=== PATIENT | female | born 1995 | race American Indian/Alaskan Native ===

== ENCOUNTER 2021-03-19 19:35 | Emergency (ER) | payer SELFPAY ==
--- NOTE | 2021-03-19 20:42 | Emergency Department Report ---
ED Female HPI - General Chief complaint: Abdominal Pain Stated complaint: PELVIC PAIN Time Seen by Provider: 03/19/21 20:38 Source: patient Mode of arrival: Ambulatory Limitations: No Limitations - History of Present Illness Initial comments: Is a 25-year-old female who presents for vaginal pain and bleeding x1 week. Menstrual cycle 1 month ago. Patient is G2, P1, A1. Patient describes pain as cramping aching exacerbated by movement and palpation. Patient has appointment with ACUTE COORDINATOR however it increased to 5/10 today. There is no nausea or vomiting. No fever or chills. No dizziness lightheadedness ,or syncope. Has no history of fibroid or ovarian cyst. Patient denies concern for STI. there is no abnormal vaginal discharge, she denies dysuria, frequency or urgency , pt is tolerating po intake without n/v MD Complaint: vaginal bleeding, pelvic pain - Related Data Previous Rx's Medication Instructions Recorded Last Taken Type Ibuprofen [Motrin 800 MG tab] 800 mg PO Q8HR PRN #30 tablet 03/20/21 Unknown Rx Allergies Allergy/AdvReac Type Severity Reaction Status Date / Time No Known Allergies Allergy Unverified 03/19/21 23:20 ED Review of Systems ROS: Stated complaint: PELVIC PAIN Other details as noted in HPI Constitutional: denies: chills, fever Eyes: denies: eye pain, eye discharge, vision change ENT: denies: ear pain, throat pain Respiratory: denies: cough, shortness of breath, wheezing Cardiovascular: denies: chest pain, palpitations Endocrine: no symptoms reported Gastrointestinal: abdominal pain. denies: nausea, vomiting, diarrhea Genitourinary: abnormal menses. denies: urgency, dysuria, frequency, hematuria, discharge Musculoskeletal: back pain Skin: denies: rash, lesions Neurological: denies: headache, weakness, paresthesias Psychiatric: denies: anxiety, depression Hematological/Lymphatic: denies: easy bleeding, easy bruising ED Past Medical Hx - Past Medical History Previous Medical History?: Yes Hx Psychiatric Treatment: Yes (anxiety) - Surgical History Past Surgical History?: No - Medications Home Medications: Home Medications Medication Instructions Recorded Confirmed Last Taken Type Ibuprofen [Motrin 800 MG tab] 800 mg PO Q8HR PRN #30 tablet 03/20/21 Unknown Rx ED Physical Exam - General Limitations: No Limitations General appearance: alert, in no apparent distress - Head Head exam: Present: atraumatic, normocephalic - Eye Eye exam: Present: normal appearance, EOMI Pupils: Present: normal accommodation - ENT ENT exam: Present: mucous membranes moist - Neck Neck exam: Present: normal inspection, full ROM. Absent: tenderness - Respiratory Respiratory exam: Present: normal lung sounds bilaterally. Absent: respiratory distress, wheezes, chest wall tenderness - Cardiovascular Cardiovascular Exam: Present: regular rate, normal rhythm, normal heart sounds. Absent: systolic murmur, diastolic murmur, rubs, gallop - GI/Abdominal GI/Abdominal exam: Present: soft, normal bowel sounds. Absent: distended, tenderness, guarding, rebound, rigid, bruit, hernia - Rectal Rectal exam: Present: deferred - External exam: Present: other (deferred by patient ) - Extremities Exam Extremities exam: Present: normal inspection, full ROM - Back Exam Back exam: Present: normal inspection, full ROM. Absent: CVA tenderness (R), CVA tenderness (L) - Neurological Exam Neurological exam: Present: alert, oriented X3, CN II-XII intact, normal gait - Psychiatric Psychiatric exam: Present: normal affect - Skin Skin exam: Present: warm, dry, intact, normal color. Absent: rash ED Course Vital Signs 03/19/21 19:55 Temperature 98.3 F Pulse Rate 79 Respiratory 16 Rate Blood Pressure 96/49 O2 Sat by Pulse 100 Oximetry ED Medical Decision Making - Lab Data Result diagrams: 03/19/21 21:04 Labs 03/19/21 03/19/21 21:04 21:04 WBC 6.2 RBC 4.16 Hgb 11.3 Hct 35.8 MCV 86 MCH 27 L MCHC 32 RDW 15.1 Plt Count 313 Lymph % (Auto) 17.5 [place] % (Auto) 4.9 Eos % (Auto) 0.2 Baso % (Auto) 0.3 Lymph # (Auto) 1.1 L [place] # (Auto) 0.3 Eos # (Auto) 0.0 Baso # (Auto) 0.0 Seg Neutrophils % 77.1 H Seg Neutrophils # 4.8 HCG, Quant < 2 - Radiology Data Radiology results: report reviewed, image reviewed ULTRASOUND PELVIS, COMPLETE INDICATION: Pelvic pain COMPARISON: No relevant prior imaging study available. TECHNIQUE: Transabdominal imaging was performed. FINDINGS: Uterus: No significant abnormality. Endometrial echo complex measures 9 mm, within normal limits. Right ovary: No significant abnormality. Flow is seen to the right ovary. Left ovary: Not visualized. Additional findings: There is no free fluid in the pelvis. IMPRESSION: Unremarkable pelvic ultrasound. Nonvisualization of the left ovary. Signer Name: Oliverio Oliver MD Signed: 03/20/2021 12:31 AM Workstation Name: [id number] Transcribed By: MAU Dictated By: Oliverio Oliver MD Electronically Authenticated By: Oliverio Oliver MD Signed Date/Time: 03/20/21 0031 - Medical Decision Making Labs are normal, ultrasound pelvis unremarkable, plan DC to home, with prescriptions. Follow-up with primary care doctor in 2 to 3 days. Return to emergency department should symptoms worsen. Patient verbalized agreement and understanding with discharge plan. Patient DC'd home in stable condition at this time. Critical care attestation.: If time is entered above; I have spent that time in minutes in the direct care of this critically ill patient, excluding procedure time. ED Disposition Clinical Impression: Dysmenorrhea Abdominal pain Qualifiers: Abdominal location: generalized Qualified Code(s): R10.84 - Generalized abdominal pain Disposition: 01 HOME / SELF CARE / HOMELESS Is pt being admited?: No Does the pt Need Aspirin: No Condition: Stable Instructions: Abdominal Pain (ED), Abdominal Pain, Adult, Dysmenorrhea Additional Instructions: Take medications as prescribed, follow-up with your doctor in 2 to 3 days. Return to emergency department should symptoms worsen. Prescriptions: Ibuprofen [Motrin 800 MG tab] 800 mg PO Q8HR PRN #30 tablet PRN Reason: pain Referrals: BLANCA COPELAND MD [Staff Physician] - 3-5 Days Forms: Work/School Release Form(ED) Time of Disposition: 01:03
[2021-03-19 21:26] LABS: Basophils % (Auto) 0.3 % (0.0-1.8); Eosinophils % (Auto) 0.2 % (0.0-4.3); Hematocrit 35.8 % (30.3-42.9); Hemoglobin 11.3 gm/dl (10.1-14.3); Lymphocytes # (Auto) 1.1 K/mm3 (1.2-5.4); Lymphocytes % (Auto) 17.5 % (13.4-35.0); Mean Corpuscular HGB Conc 32 % (30-34); Mean Corpuscular Volume 86 fl (79-97); Monocytes # (Auto) 0.3 K/mm3 (0.0-0.8); Monocytes % (Auto) 4.9 % (0.0-7.3); Platelet Count 313 K/mm3 (140-440); Red Blood Count 4.16 M/mm3 (3.65-5.03); Red Cell Distribution Width 15.1 % (13.2-15.2)
--- NOTE | 2021-03-20 00:36 | Ultrasound Report ---
. ULTRASOUND PELVIS, COMPLETE INDICATION: Pelvic pain COMPARISON: No relevant prior imaging study available. TECHNIQUE: Transabdominal imaging was performed. FINDINGS: Uterus: No significant abnormality. Endometrial echo complex measures 9 mm, within normal limits. Right ovary: No significant abnormality. Flow is seen to the right ovary. Left ovary: Not visualized. Additional findings: There is no free fluid in the pelvis. IMPRESSION: Unremarkable pelvic ultrasound. Nonvisualization of the left ovary. Signer Name: Oliverio Oliver MD Signed: 03/20/2021 12:31 AM Workstation Name: [id number]
[2021-03-20 01:18] VITALS: BP 93/60
== END 2021-03-20 01:23 | disposition home or self-care (01) ==
LOC: ED 19:35
DX: N94.6 Dysmenorrhea, unspecified (principal)
CPT/HCPCS: 36415; 76856; 84702; 85025; 99284

== ENCOUNTER 2021-07-12 21:43 | Emergency (ER) | payer MEDICAID ==
[2021-07-12] MEDS ORDERED: FAMOTIDINE 20 MG/2 ML INJ IV ONE (22:25)
[2021-07-12] MEDS ORDERED: METOCLOPRAMIDE 10 MG/2 ML INJ IV ONE (22:25)
[2021-07-12] MEDS ORDERED: diphenhydrAMINE 50 MG/ML VIAL IV ONE (22:25)
[2021-07-12 23:14] LABS: Hemoglobin 11.3 gm/dl (10.1-14.3); Mean Corpuscular HGB Conc 32 % (30-34); Mean Corpuscular Volume 87 fl (79-97); Platelet Count 262 K/mm3 (140-440); Red Blood Count 4.03 M/mm3 (3.65-5.03); Red Cell Distribution Width 14.4 % (13.2-15.2)
[2021-07-12 23:34] LABS: Alanine Aminotransferase 8 units/L (7-56); Blood Urea Nitrogen 8 mg/dL (7-17); Calcium 8.8 mg/dL (8.4-10.2); Hemolysis Index 6
[2021-07-12 23:42] LABS: BUN/Creatinine Ratio 20
[2021-07-12] MEDS ORDERED: POTASSIUM CHLORIDE ER 20 MEQ TAB PO ONE (23:56)
[2021-07-13 00:24] LABS: Bilirubin,Urine NEG (Negative); Blood,Urine NEG (Negative); Color,Urine Yellow (Yellow); Protein,Urine <15 mg/dL mg/dL (Negative); RBC,Urine < 1.0 /HPF (0.0-6.0); Urobilinogen,Urine < 2.0 mg/dL (<2.0)
[2021-07-13 00:32] LABS: Band Neutrophils # (Manual) 0.1 K/mm3; Total Cells Counted 100
[2021-07-13 00:33] LABS: Anisocytosis 1+; Platelet Estimate Consistent w Auto
--- NOTE | 2021-07-13 00:41 | Emergency Department Report ---
ED N/V/D HPI - General Chief complaint: Nausea/Vomiting/Diarrhea Stated complaint: /CANNOT HOLD ANYTHING DOWN Source: patient Mode of arrival: Ambulatory Limitations: No Limitations - History of Present Illness Initial comments: Patient is a A0 25-year-old -Malaysian female who is approximately 10 weeks gestation and who has past medical history of anxiety presents to the ED with complaint of acute onset persistent intractable nausea and vomiting for the last 1 week, worse in the last 3 days. Patient states that she has not been able to keep anything down including fluids for the last 3 days. Patient states that nausea and vomiting is constant and persistent. Patient denies abdominal pain, vaginal bleeding, diarrhea, fever, chills, cough, chest pain, shortness of breath, sore throat, headache, dysuria, urinary frequency and urgency or back pain. MD complaint: nausea, vomiting, other (10 weeks gestation) -: Sudden, week(s) (1) Description of Vomiting: food contents, watery Associated Abdominal Pain: No Location: diffuse Radiation: none Severity: moderate Pain Scale: 5 Quality: dull Consistency: intermittent Improves with: none Worsens with: eating, vomiting Context: other (10 weeks gestation) Associated Symptoms: denies other symptoms, nausea/vomiting. denies: myalgias, chest pain, cough, diaphoresis, fever/chills, headaches, loss of appetite, malaise, rash, shortness of breath, syncope, weakness - Related Data Previous Rx's Medication Instructions Recorded Last Taken Type Ibuprofen [Motrin 800 MG tab] 800 mg PO Q8HR PRN #30 tablet 03/20/21 Unknown Rx Famotidine [Pepcid] 20 mg PO BID #30 tablet 07/13/21 Unknown Rx Metoclopramide [Reglan] 10 mg PO Q8H PRN #30 tab 07/13/21 Unknown Rx Potassium Chloride [Klor-Con M20] 20 meq PO Q12H #12 tab 07/13/21 Unknown Rx Vit No.129/Iron/Folic 1 each PO DAILY #60 tab 07/13/21 Unknown Rx [ One Daily Tablet] Promethazine HCl [Phenergan SUPPOS] 25 mg RC Q12H PRN #15 cap 07/13/21 Unknown Rx Allergies Allergy/AdvReac Type Severity Reaction Status Date / Time shellfish derived Allergy Swelling Verified 07/12/21 22:09 ED Review of Systems ROS: Stated complaint: /CANNOT HOLD ANYTHING DOWN Other details as noted in HPI Constitutional: denies: chills, fever Eyes: denies: eye pain, eye discharge, vision change ENT: denies: ear pain, throat pain, dental pain, hearing loss, congestion Respiratory: denies: cough, shortness of breath, wheezing Cardiovascular: denies: chest pain, palpitations Endocrine: no symptoms reported Gastrointestinal: nausea, vomiting. denies: abdominal pain, diarrhea Genitourinary: denies: urgency, dysuria, discharge Musculoskeletal: denies: back pain, joint swelling, arthralgia Skin: denies: rash, lesions Neurological: denies: headache, weakness, paresthesias Psychiatric: denies: anxiety, depression Hematological/Lymphatic: denies: easy bleeding, easy bruising ED Past Medical Hx - Past Medical History Previous Medical History?: Yes Hx Psychiatric Treatment: Yes (anxiety) - Surgical History Past Surgical History?: No - Medications Home Medications: Home Medications Medication Instructions Recorded Confirmed Last Taken Type Ibuprofen [Motrin 800 MG tab] 800 mg PO Q8HR PRN #30 tablet 03/20/21 Unknown Rx Famotidine [Pepcid] 20 mg PO BID #30 tablet 07/13/21 Unknown Rx Metoclopramide [Reglan] 10 mg PO Q8H PRN #30 tab 07/13/21 Unknown Rx Potassium Chloride [Klor-Con M20] 20 meq PO Q12H #12 tab 07/13/21 Unknown Rx Vit No.129/Iron/Folic 1 each PO DAILY #60 tab 07/13/21 Unknown Rx [ One Daily Tablet] Promethazine HCl [Phenergan SUPPOS] 25 mg RC Q12H PRN #15 cap 07/13/21 Unknown Rx ED Physical Exam - General Limitations: No Limitations General appearance: alert, in no apparent distress - Head Head exam: Present: atraumatic, normocephalic, normal inspection - Eye Eye exam: Present: normal appearance, PERRL, EOMI Pupils: Present: normal accommodation - ENT ENT exam: Present: normal exam, normal orophraynx, mucous membranes moist, TM's normal bilaterally, normal external ear exam - Neck Neck exam: Present: normal inspection, full ROM. Absent: tenderness - Respiratory Respiratory exam: Present: normal lung sounds bilaterally. Absent: respiratory distress, wheezes, rales, rhonchi, chest wall tenderness, accessory muscle use, decreased breath sounds - Cardiovascular Cardiovascular Exam: Present: regular rate, normal rhythm, normal heart sounds. Absent: bradycardia, tachycardia, systolic murmur, diastolic murmur, rubs, gallop - GI/Abdominal GI/Abdominal exam: Present: soft, normal bowel sounds. Absent: tenderness, guarding, rebound, hyperactive bowel sounds, hypoactive bowel sounds, or ganomegaly, mass - Extremities Exam Extremities exam: Present: normal inspection, full ROM, normal capillary refill - Back Exam Back exam: Present: normal inspection, full ROM. Absent: tenderness, CVA tenderness (R), CVA tenderness (L), muscle spasm, paraspinal tenderness, vertebral tenderness - Neurological Exam Neurological exam: Present: alert, oriented X3, CN II-XII intact, normal gait, reflexes normal - Psychiatric Psychiatric exam: Present: normal affect, normal mood - Skin Skin exam: Present: warm, dry, intact, normal color. Absent: rash ED Course Vital Signs 07/12/21 22:09 Temperature 98.8 F Pulse Rate 78 Respiratory 16 Rate Blood Pressure 113/69 [Right] O2 Sat by Pulse 99 Oximetry ED Medical Decision Making - Lab Data Result diagrams: 07/12/21 22:48 07/12/21 22:48 - Medical Decision Making This is a A0 25-year-old -Malaysian female who is approximately 10 weeks gestation and who has past medical history of anxiety presents to the ED with complaint of acute onset persistent intractable nausea and vomiting for the last 1 week, worse in the last 3 days. Patient states that she has not been able to keep anything down including fluids for the last 3 days. Patient states that nausea and vomiting is constant and persistent. In the ED, patient is alert and oriented x3 and is not in any distress. Patient is hemodynamically stable. Lab test results were reviewed and are all nonactionable except for ac pauma hypokalemia of 3.3 mmol/L and mild acute hyponatremia of 135 mmol/L, and hCG quant is [id number]. Patient was treated in the ED with antacids, antiemetics and also received normal saline 1 L IV bolus x1. Patient also received potassium chloride 40 mEq p.o. x1. On reevaluation, patient passed oral fluid challenge in the ED. Patient was discharged home on medications including antiemetics and vitamin prescriptions and was advised to follow-up with [facility] RECAPPING MACHINE OPERATOR physician in 5 to 7 days for reevaluation or return to the ED immediately if symptoms get worse. - Differential Diagnosis Dehydration; hyperemesis gravidarum; UTI; GERD; hypokalemia Critical care attestation.: If time is entered above; I have spent that time in minutes in the direct care of this critically ill patient, excluding procedure time. ED Disposition Clinical Impression: Hyperemesis gravidarum, Nausea and vomiting during prior to 22 weeks gestation, Acute hypokalemia Disposition: HOME / SELF CARE / HOMELESS Is pt being admited?: No Does the pt Need Aspirin: No Condition: Stable Instructions: Hyperemesis Gravidarum, Hypokalemia, Nausea and Vomiting, Adult, [id number], Morning Sickness, [id number] Additional Instructions: All lab test results were reviewed and are all nonactionable except for mild hyponatremia and hypokalemia. Therefore maintain a clear liquid diet for 12 to 24 hours, drink plenty of fluids and take medication as advised. Follow-up with your TIRE RECAPPING MACHINE OPERATOR physician in 5 to 7 days for reevaluation or return to the ED immediately if symptoms get worse. Prescriptions: Potassium Chloride [Klor-Con M20] 20 meq PO Q12H #12 tab Famotidine [Pepcid] 20 mg PO BID #30 tablet Promethazine HCl [Phenergan SUPPOS] 25 mg RC Q12H PRN #15 cap PRN Reason: Nausea And Vomiting Vit No.129/Iron/Folic [ One Daily Tablet] 1 each PO DAILY #60 tab Metoclopramide [Reglan] 10 mg PO Q8H PRN #30 tab PRN Reason: Nausea And Vomiting Referrals: UMER DAS MD [Staff Physician] - 3-5 Days Time of Disposition: 00:45 Print Language: FINNISH
[2021-07-13 00:43] LABS: Bacteria,Urine 2+ /HPF (Negative); Mucus,Urine FEW /HPF
[2021-07-13 01:29] VITALS: BP 135/75
== END 2021-07-13 01:29 | disposition home or self-care (01) ==
LOC: ED 21:43
DX: O21.1 Hyperemesis gravidarum with metabolic disturbance (principal); O21.9 Vomiting of pregnancy, unspecified; O99.281 Endocrine, nutritional and metabolic diseases complicating pregnancy, first trimester; Z91.013 Allergy to seafood; Z3A.10 10 weeks gestation of pregnancy
CPT/HCPCS: 36415; 80053; 81001; 83690; 84702; 85007; 85025; 96374; 96375; 99283; J1200; J2765; J3490

== ENCOUNTER 2021-10-06 21:51 | Emergency (ER) | payer MEDICAID ==
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
[2021-10-06 23:57] LABS: Basophils % (Auto) 0.2 % (0.0-1.8); Eosinophils % (Auto) 0.1 % (0.0-4.3); Lymphocytes # (Auto) 2.4 K/mm3 (1.2-5.4); Lymphocytes % (Auto) 21.5 % (13.4-35.0); Mean Corpuscular HGB Conc 32 % (30-34); Mean Corpuscular Volume 90 fl (79-97); Monocytes # (Auto) 0.7 K/mm3 (0.0-0.8); Monocytes % (Auto) 6.4 % (0.0-7.3); Platelet Count 333 K/mm3 (140-440); Red Blood Count 3.79 M/mm3 (3.65-5.03); Red Cell Distribution Width 14.4 % (13.2-15.2)
[2021-10-07 00:09] LABS: INR 0.95 (0.87-1.13)
[2021-10-07 00:10] LABS: Partial Thromboplastin Time 29.5 Sec. (24.2-36.6)
[2021-10-07 00:17] LABS: Alanine Aminotransferase 7 units/L (7-56); Albumin 4.2 g/dL (3.9-5); Blood Urea Nitrogen 8 mg/dL (7-17); Calcium 9.6 mg/dL (8.4-10.2); Hemolysis Index 2
[2021-10-07 00:18] LABS: BUN/Creatinine Ratio 16
[2021-10-07 02:29] LABS: Iron 123 ug/dL (37-170); Total Iron Binding Capacity 425 mcg/dL (250-450)
[2021-10-07 08:40] LABS: Bilirubin,Urine NEG (Negative); Blood,Urine NEG (Negative); Color,Urine Amber (Yellow); Mucus,Urine 3+ /HPF; Protein,Urine <15 mg/dL mg/dL (Negative)
[2021-10-07 08:45] LABS: Amphetamine Screen,Urine Negative; Benzodiazepines Screen,Urine Negative; Cannabinoid Screen,Urine Negative; Cocaine Screen,Urine Negative; Methadone Screen,Urine Negative; Opiate Screen,Urine Negative
[2021-10-07] MEDS ORDERED: POTASSIUM CHLORIDE ER 20 MEQ TAB PO ONE (11:51)
[2021-10-07] MEDS ORDERED: ONDANSETRON 4 MG ODT TAB PO PRN (11:51)
--- NOTE | 2021-10-07 12:00 | Event Note ---
Date: 10/07/21 The patient was evaluated in the emergency department for symptoms described in the history of present illness. He/she was evaluated in the context of the global COVID-19 pandemic, which necessitated consideration that the patient might be at risk for infection with the virus that causes COVID-19. Institutional protocols and algorithms that pertain to the evaluation of patients at risk for COVID-19 are in a state of rapid change based on information released by regulatory bodies including the CDC and federal and state organizations. These policies and algorithms were followed during the patient's care in the emergency department. Please note that these policies, procedures and recommendations changed on a rapid basis. Patient is seen and evaluated. She is not actively vomiting. She is resting comfortably in her stretcher. As per review of chart, patient may have overdosed. Patient told the nurse that she Apsley did not overdose, and poured things down the drain. Initial laboratory studies are remarkable for anion gap of 28, and mild hypokalemia. Patient did endorse to the nurse that she has been having some issues with nausea and vomiting secondary to her . Nursing team incidentally reports that patient ate breakfast this morning, without difficulty. EKG is interpreted by myself at 12: 12 PM. Sinus rhythm, 74 bpm. Normal axis, normal P wave axis, normal intervals, essentially unremarkable, not a STEMI. Have ordered repeat iron levels as per [facility]'s recommendations, IV fluids, D5 half-normal, ultrasound, holding ordered medications. In addition, the psychiatry team is going to evaluate the patient, and make further recommendations. Urinalysis shows mild pyuria without bacteriuria. Nursing team informs me that they were able to appreciate appropriate heart tones. Vital Signs 10/06/21 10/06/21 10/07/21 21:51 22:15 01:00 Temperature Pulse Rate 78 89 Respiratory 18 Rate Blood Pressure 99/65 91/57 [Left] O2 Sat by Pulse 99 97 Oximetry 10/07/21 10/07/21 10/07/21 02:00 04:00 07:45 Temperature 97.6 F Pulse Rate 81 81 80 Respiratory 18 15 Rate Blood Pressure 100/46 99/52 97/37 [Left] O2 Sat by Pulse 100 Oximetry Lab Results 10/06/21 10/06/21 10/06/21 Range/Units 23:38 23:38 23:38 WBC 11.3 H (4.5-11.0) K/mm3 RBC 3.79 (3.65-5.03) M/mm3 Hgb 11.0 (10.1-14.3) gm/dl Hct 34.0 (30.3-42.9) % MCV 90 (79-97) fl MCH 29 (28-32) pg MCHC 32 (30-34) % RDW 14.4 (13.2-15.2) % Plt Count 333 (140-440) K/mm3 Lymph % (Auto) 21.5 (13.4-35.0) % [place] % (Auto) 6.4 (0.0-7.3) % Eos % (Auto) 0.1 (0.0-4.3) % Baso % (Auto) 0.2 (0.0-1.8) % Lymph # (Auto) 2.4 (1.2-5.4) K/mm3 [place] # (Auto) 0.7 (0.0-0.8) K/mm3 Eos # (Auto) 0.0 (0.0-0.4) K/mm3 Baso # (Auto) 0.0 (0.0-0.1) K/mm3 Seg Neutrophils % 71.8 H (40.0-70.0) % Seg Neutrophils # 8.1 H (1.8-7.7) K/mm3 PT (12.2-14.9) Sec. INR (0.87-1.13) APTT (24.2-36.6) Sec. Sodium 139 (137-145) mmol/L Potassium 2.9 L* (3.6-5.0) mmol/L Chloride 99.0 (98-107) mmol/L Carbon Dioxide 15 L (22-30) mmol/L Anion Gap 28 mmol/L BUN 8 (7-17) mg/dL Creatinine 0.5 L (0.6-1.2) mg/dL Estimated GFR > 60 ml/min BUN/Creatinine Ratio 16 % Glucose 113 H (65-100) mg/dL Calcium 9.6 (8.4-10.2) mg/dL Magnesium (1.7-2.3) mg/dL Iron (37-170) ug/dL TIBC (250-450) mcg/dL Total Bilirubin 0.20 (0.1-1.2) mg/dL AST 18 (5-40) units/L ALT 7 (7-56) units/L Alkaline Phosphatase 67 (35-129) units/L NT-Pro-B Natriuret Pep (0-450) pg/mL Total Protein 7.1 (6.3-8.2) g/dL Albumin 4.2 (3.9-5) g/dL Albumin/Globulin Ratio 1.4 % Lipase (13-60) units/L TSH 2.140 (0.270-4.200) mlU/mL HCG, Quant (0-4) mIU/mL Urine Color (Yellow) Urine Turbidity (Clear) Urine pH (5.0-7.0) Ur Specific [place] (1.003-1.030) Urine Protein (Negative) mg/dL Urine Glucose (UA) (Negative) mg/dL Urine Ketones (Negative) mg/dL Urine Blood (Negative) Urine Nitrite (Negative) Urine Bilirubin (Negative) Urine Urobilinogen (<2.0) mg/dL Ur Leukocyte Esterase (Negative) Urine WBC (Auto) (0.0-6.0) /HPF Urine RBC (Auto) (0.0-6.0) /HPF U Epithel Cells (Auto) (0-13.0) /HPF Urine Mucus /HPF Salicylates (2.8-20.0) mg/dL Urine Opiates Screen Urine Methadone Screen Acetaminophen (10.0-30.0) ug/mL Ur Barbiturates Screen Ur Phencyclidine Scrn Ur Amphetamines Screen U Benzodiazepines Scrn Urine Cocaine Screen U Marijuana (THC) Screen Drugs of Abuse Note Plasma/Serum Alcohol (0-0.07) % 10/06/21 10/06/21 10/06/21 Range/Units 23:38 23:38 23:38 WBC (4.5-11.0) K/mm3 RBC (3.65-5.03) M/mm3 Hgb (10.1-14.3) gm/dl Hct (30.3-42.9) % MCV (79-97) fl MCH (28-32) pg MCHC (30-34) % RDW (13.2-15.2) % Plt Count (140-440) K/mm3 Lymph % (Auto) (13.4-35.0) % [place] % (Auto) (0.0-7.3) % Eos % (Auto) (0.0-4.3) % Baso % (Auto) (0.0-1.8) % Lymph # (Auto) (1.2-5.4) K/mm3 [place] # (Auto) (0.0-0.8) K/mm3 Eos # (Auto) (0.0-0.4) K/mm3 Baso # (Auto) (0.0-0.1) K/mm3 Seg Neutrophils % (40.0-70.0) % Seg Neutrophils # (1.8-7.7) K/mm3 PT 13.7 (12.2-14.9) Sec. INR 0.95 (0.87-1.13) APTT 29.5 (24.2-36.6) Sec. Sodium (137-145) mmol/L Potassium (3.6-5.0) mmol/L Chloride (98-107) mmol/L Carbon Dioxide (22-30) mmol/L Anion Gap mmol/L BUN (7-17) mg/dL Creatinine (0.6-1.2) mg/dL Estimated GFR ml/min BUN/Creatinine Ratio % Glucose (65-100) mg/dL Calcium (8.4-10.2) mg/dL Magnesium (1.7-2.3) mg/dL Iron (37-170) ug/dL TIBC (250-450) mcg/dL Total Bilirubin (0.1-1.2) mg/dL AST (5-40) units/L ALT (7-56) units/L Alkaline Phosphatase (35-129) units/L NT-Pro-B Natriuret Pep 32.38 (0-450) pg/mL Total Protein (6.3-8.2) g/dL Albumin (3.9-5) g/dL Albumin/Globulin Ratio % Lipase 43 (13-60) units/L TSH (0.270-4.200) mlU/mL HCG, Quant 88804 H (0-4) mIU/mL Urine Color (Yellow) Urine Turbidity (Clear) Urine pH (5.0-7.0) Ur Specific [place] (1.003-1.030) Urine Protein (Negative) mg/dL Urine Glucose (UA) (Negative) mg/dL Urine Ketones (Negative) mg/dL Urine Blood (Negative) Urine Nitrite (Negative) Urine Bilirubin (Negative) Urine Urobilinogen (<2.0) mg/dL Ur Leukocyte Esterase (Negative) Urine WBC (Auto) (0.0-6.0) /HPF Urine RBC (Auto) (0.0-6.0) /HPF U Epithel Cells (Auto) (0-13.0) /HPF Urine Mucus /HPF Salicylates (2.8-20.0) mg/dL Urine Opiates Screen Urine Methadone Screen Acetaminophen (10.0-30.0) ug/mL Ur Barbiturates Screen Ur Phencyclidine Scrn Ur Amphetamines Screen U Benzodiazepines Scrn Urine Cocaine Screen U Marijuana (THC) Screen Drugs of Abuse Note Plasma/Serum Alcohol (0-0.07) % 10/06/21 10/06/21 10/06/21 Range/Units 23:38 23:38 23:38 WBC (4.5-11.0) K/mm3 RBC (3.65-5.03) M/mm3 Hgb (10.1-14.3) gm/dl Hct (30.3-42.9) % MCV (79-97) fl MCH (28-32) pg MCHC (30-34) % RDW (13.2-15.2) % Plt Count (140-440) K/mm3 Lymph % (Auto) (13.4-35.0) % [place] % (Auto) (0.0-7.3) % Eos % (Auto) (0.0-4.3) % Baso % (Auto) (0.0-1.8) % Lymph # (Auto) (1.2-5.4) K/mm3 [place] # (Auto) (0.0-0.8) K/mm3 Eos # (Auto) (0.0-0.4) K/mm3 Baso # (Auto) (0.0-0.1) K/mm3 Seg Neutrophils % (40.0-70.0) % Seg Neutrophils # (1.8-7.7) K/mm3 PT (12.2-14.9) Sec. INR (0.87-1.13) APTT (24.2-36.6) Sec. Sodium (137-145) mmol/L Potassium (3.6-5.0) mmol/L Chloride (98-107) mmol/L Carbon Dioxide (22-30) mmol/L Anion Gap mmol/L BUN (7-17) mg/dL Creatinine (0.6-1.2) mg/dL Estimated GFR ml/min BUN/Creatinine Ratio % Glucose (65-100) mg/dL Calcium (8.4-10.2) mg/dL Magnesium (1.7-2.3) mg/dL Iron 123 (37-170) ug/dL TIBC 425 (250-450) mcg/dL Total Bilirubin (0.1-1.2) mg/dL AST (5-40) units/L ALT (7-56) units/L Alkaline Phosphatase (35-129) units/L NT-Pro-B Natriuret Pep (0-450) pg/mL Total Protein (6.3-8.2) g/dL Albumin (3.9-5) g/dL Albumin/Globulin Ratio % Lipase (13-60) units/L TSH (0.270-4.200) mlU/mL HCG, Quant (0-4) mIU/mL Urine Color (Yellow) Urine Turbidity (Clear) Urine pH (5.0-7.0) Ur Specific [place] (1.003-1.030) Urine Protein (Negative) mg/dL Urine Glucose (UA) (Negative) mg/dL Urine Ketones (Negative) mg/dL Urine Blood (Negative) Urine Nitrite (Negative) Urine Bilirubin (Negative) Urine Urobilinogen (<2.0) mg/dL Ur Leukocyte Esterase (Negative) Urine WBC (Auto) (0.0-6.0) /HPF Urine RBC (Auto) (0.0-6.0) /HPF U Epithel Cells (Auto) (0-13.0) /HPF Urine Mucus /HPF Salicylates < 0.3 L (2.8-20.0) mg/dL Urine Opiates Screen Urine Methadone Screen Acetaminophen (10.0-30.0) ug/mL Ur Barbiturates Screen Ur Phencyclidine Scrn Ur Amphetamines Screen U Benzodiazepines Scrn Urine Cocaine Screen U Marijuana (THC) Screen Drugs of Abuse Note Plasma/Serum Alcohol < 0.01 (0-0.07) % 10/06/21 10/06/21 10/07/21 Range/Units 23:38 23:38 Unknown WBC (4.5-11.0) K/mm3 RBC (3.65-5.03) M/mm3 Hgb (10.1-14.3) gm/dl Hct (30.3-42.9) % MCV (79-97) fl MCH (28-32) pg MCHC (30-34) % RDW (13.2-15.2) % Plt Count (140-440) K/mm3 Lymph % (Auto) (13.4-35.0) % [place] % (Auto) (0.0-7.3) % Eos % (Auto) (0.0-4.3) % Baso % (Auto) (0.0-1.8) % Lymph # (Auto) (1.2-5.4) K/mm3 [place] # (Auto) (0.0-0.8) K/mm3 Eos # (Auto) (0.0-0.4) K/mm3 Baso # (Auto) (0.0-0.1) K/mm3 Seg Neutrophils % (40.0-70.0) % Seg Neutrophils # (1.8-7.7) K/mm3 PT (12.2-14.9) Sec. INR (0.87-1.13) APTT (24.2-36.6) Sec. Sodium (137-145) mmol/L Potassium (3.6-5.0) mmol/L Chloride (98-107) mmol/L Carbon Dioxide (22-30) mmol/L Anion Gap mmol/L BUN (7-17) mg/dL Creatinine (0.6-1.2) mg/dL Estimated GFR ml/min BUN/Creatinine Ratio % Glucose (65-100) mg/dL Calcium (8.4-10.2) mg/dL Magnesium 2.20 (1.7-2.3) mg/dL Iron (37-170) ug/dL TIBC (250-450) mcg/dL Total Bilirubin (0.1-1.2) mg/dL AST (5-40) units/L ALT (7-56) units/L Alkaline Phosphatase (35-129) units/L NT-Pro-B Natriuret Pep (0-450) pg/mL Total Protein (6.3-8.2) g/dL Albumin (3.9-5) g/dL Albumin/Globulin Ratio % Lipase (13-60) units/L TSH (0.270-4.200) mlU/mL HCG, Quant (0-4) mIU/mL Urine Color [place] (Yellow) Urine Turbidity Clear (Clear) Urine pH 5.0 (5.0-7.0) Ur Specific [place] 1.026 (1.003-1.030) Urine Protein <15 mg/dl (Negative) mg/dL Urine Glucose (UA) Neg (Negative) mg/dL Urine Ketones 20 (Negative) mg/dL Urine Blood Neg (Negative) Urine Nitrite Neg (Negative) Urine Bilirubin Neg (Negative) Urine Urobilinogen 2.0 (<2.0) mg/dL Ur Leukocyte Esterase Mod (Negative) Urine WBC (Auto) 8.0 H (0.0-6.0) /HPF Urine RBC (Auto) 1.0 (0.0-6.0) /HPF U Epithel Cells (Auto) 4.0 (0-13.0) /HPF Urine Mucus 3+ /HPF Salicylates (2.8-20.0) mg/dL Urine Opiates Screen Urine Methadone Screen Acetaminophen 5.0 L (10.0-30.0) ug/mL Ur Barbiturates Screen Ur Phencyclidine Scrn Ur Amphetamines Screen U Benzodiazepines Scrn Urine Cocaine Screen U Marijuana (THC) Screen Drugs of Abuse Note Plasma/Serum Alcohol (0-0.07) % 10/07/21 Range/Units Unknown WBC (4.5-11.0) K/mm3 RBC (3.65-5.03) M/mm3 Hgb (10.1-14.3) gm/dl Hct (30.3-42.9) % MCV (79-97) fl MCH (28-32) pg MCHC (30-34) % RDW (13.2-15.2) % Plt Count (140-440) K/mm3 Lymph % (Auto) (13.4-35.0) % [place] % (Auto) (0.0-7.3) % Eos % (Auto) (0.0-4.3) % Baso % (Auto) (0.0-1.8) % Lymph # (Auto) (1.2-5.4) K/mm3 [place] # (Auto) (0.0-0.8) K/mm3 Eos # (Auto) (0.0-0.4) K/mm3 Baso # (Auto) (0.0-0.1) K/mm3 Seg Neutrophils % (40.0-70.0) % Seg Neutrophils # (1.8-7.7) K/mm3 PT (12.2-14.9) Sec. INR (0.87-1.13) APTT (24.2-36.6) Sec. Sodium (137-145) mmol/L Potassium (3.6-5.0) mmol/L Chloride (98-107) mmol/L Carbon Dioxide (22-30) mmol/L Anion Gap mmol/L BUN (7-17) mg/dL Creatinine (0.6-1.2) mg/dL Estimated GFR ml/min BUN/Creatinine Ratio % Glucose (65-100) mg/dL Calcium (8.4-10.2) mg/dL Magnesium (1.7-2.3) mg/dL Iron (37-170) ug/dL TIBC (250-450) mcg/dL Total Bilirubin (0.1-1.2) mg/dL AST (5-40) units/L ALT (7-56) units/L Alkaline Phosphatase (35-129) units/L NT-Pro-B Natriuret Pep (0-450) pg/mL Total Protein (6.3-8.2) g/dL Albumin (3.9-5) g/dL Albumin/Globulin Ratio % Lipase (13-60) units/L TSH (0.270-4.200) mlU/mL HCG, Quant (0-4) mIU/mL Urine Color (Yellow) Urine Turbidity (Clear) Urine pH (5.0-7.0) Ur Specific [place] (1.003-1.030) Urine Protein (Negative) mg/dL Urine Glucose (UA) (Negative) mg/dL Urine Ketones (Negative) mg/dL Urine Blood (Negative) Urine Nitrite (Negative) Urine Bilirubin (Negative) Urine Urobilinogen (<2.0) mg/dL Ur Leukocyte Esterase (Negative) Urine WBC (Auto) (0.0-6.0) /HPF Urine RBC (Auto) (0.0-6.0) /HPF U Epithel Cells (Auto) (0-13.0) /HPF Urine Mucus /HPF Salicylates (2.8-20.0) mg/dL Urine Opiates Screen Negative Urine Methadone Screen Negative Acetaminophen (10.0-30.0) ug/mL Ur Barbiturates Screen Negative Ur Phencyclidine Scrn Negative Ur Amphetamines Screen Negative U Benzodiazepines Scrn Negative Urine Cocaine Screen Negative U Marijuana (THC) Screen Negative Drugs of Abuse Note Disclamer Plasma/Serum Alcohol (0-0.07) % ULTRASOUND OBSTETRIC COMPLETE INDICATION / CLINICAL INFORMATION: n/v. Clinical Gestational Age (GA) in weeks.days: 19.5 TECHNIQUE: Transabdominal. COMPARISON: None available. FINDINGS: NUMBER: Single PRESENTATION: cephalic PLACENTA: Posterior, grade 0 and free of the os. MATERNAL ADNEXA: No significant abnormality. AMNIOTIC FLUID VOLUME: normal AMNIOTIC FLUID INDEX (PAULO) in cm (if measured): 15.7 ANATOMY: organs (including the bladder, stomach, kidneys, heart, umbilical cord, and intracranial structures) are visualized and show no significant abnormality with the following exception(s): Diaphragm, cord insertion and spine. MEASUREMENTS: - Biparietal Diameter = 4.1 cm = 18.3 weeks.days - Head Circumference = 16.4 cm = 19.1 weeks.days - Abdominal Circumference = 14.1 cm = 19.3 weeks.days - Femur Length = 3.3 cm = 20.2 weeks.days - Estimated Weight (in grams, if calculated): 312 - Heart Rate (beats per minute): 143 ADDITIONAL FINDINGS: None. PERCENTILE ESTIMATED WEIGHT (if calculated): 49 AVERAGE ULTRASOUND AGE (AUA) in weeks.days = 19.2 IMPRESSION: 1. Single intrauterine with AUA of 19.2 weeks.days 2. No significant sonographic abnormality. Signer Name: Sundar Arias Jr, MD Signed: 10/07/2021 11:45 AM Workstation Name: [id number] Patient reassessed October 07, 2021, 13: 13 p.m. Repeat labs show resolution of anion gap acidosis. Therefore, IV fluids are not necessary. Repeat iron levels are acceptable and within normal limits. Awaiting psychiatric consultation at this time, however, at this point time, the patient does not appear to have an immediate medical contraindication to psychiatric admission, evaluation, consultation and placement The patient presents as calm and cooperative, pleasant, and she is Apsley adamant that she is not homicidal or suicidal. She was able to eat a meal without difficulty. Furthermore, has been seen and evaluated by the psychiatric team, who have also advised that this patient does not meet criteria for 1013 hold or involuntary confinement. I certainly agree with this, as this patient has not presented as psychotic whatsoever. I explained all findings to patient, and she articulated understanding. Discharged with vitamins, nausea medication, instructions to follow-up with outpatient DOCTOR [facility]. May improve potassium status by adjusting diet. Patient currently on cell phone, and in no acute distress.
[2021-10-07] MEDS ORDERED: PYRIDOXINE 50 MG TAB PO SCH (12:30)
[2021-10-07] MEDS ORDERED: PRENATAL VIT27-FE FUMARATE-FOLIC ACID VIT TAB PO ONE (12:30)
[2021-10-07 12:41] LABS: Blood Urea Nitrogen 10 mg/dL (7-17); Calcium 8.7 mg/dL (8.4-10.2); Hemolysis Index 0; Iron 153 ug/dL (37-170); Total Iron Binding Capacity 319 mcg/dL (250-450)
[2021-10-07 12:43] LABS: BUN/Creatinine Ratio 25
--- NOTE | 2021-10-07 12:49 | Ultrasound Report ---
ULTRASOUND OBSTETRIC COMPLETE INDICATION / CLINICAL INFORMATION: n/v. Clinical Gestational Age (GA) in weeks.days: 19.5 TECHNIQUE: Transabdominal. COMPARISON: None available. FINDINGS: NUMBER: Single PRESENTATION: cephalic PLACENTA: Posterior, grade 0 and free of the os. MATERNAL ADNEXA: No significant abnormality. AMNIOTIC FLUID VOLUME: normal AMNIOTIC FLUID INDEX (PAULO) in cm (if measured): 15.7 ANATOMY: organs (including the bladder, stomach, kidneys, heart, umbilical cord, and intracranial struct ures) are visualized and show no significant abnormality with the following exception(s): Diaphragm, cord insertion and spine. MEASUREMENTS: - Biparietal Diameter = 4.1 cm = 18.3 weeks.days - Head Circumference = 16.4 cm = 19.1 weeks.days - Abdominal Circumference = 14.1 cm = 19.3 weeks.days - Femur Length = 3.3 cm = 20.2 weeks.days - Estimated Weight (in grams, if calculated): 312 - Heart Rate (beats per minute): 143 ADDITIONAL FINDINGS: None. PERCENTILE ESTIMATED WEIGHT (if calculated): 49 AVERAGE ULTRASOUND AGE (AUA) in weeks.days = 19.2 IMPRESSION: 1. Single intrauterine with AUA of 19.2 weeks.days 2. No significant sonographic abnormality. Signer Name: Sundar Arias Jr, MD Signed: 10/07/2021 12:45 PM Workstation Name: [id number]
[2021-10-07] MEDS ORDERED: D5W/0.45% NACL 1,000 ML IV SCH (13:00)
[2021-10-07 13:19] VITALS: BP 100/66
--- NOTE | 2021-10-07 14:03 | Consultation ---
History of Present Illness - Reason for Consult Consult date: 10/07/21 Reason for consult: SI - History of Present Psychiatric Illness The patient was seen today. She is calm, cooperative and pleasant. She says her and her child's father got into an argument. She says he thought that she was trying to kill herself. She says "I never said that I wanted to commit suicide. She says I have a 4 year old and I am now." She says "I would never do that to my 4 year old." The patient says "I promise I'm never was trying to hurt myself." The patient says her boyfriend thought she drank bleach, she says "but it never happened." She denies any illicit drug use, alcohol or nicotine. She also denies hallucinations of any kind. The patient says she works at [employer] and has to be at work at 5 today. She says she sees a psychiatrist already on an outpatient basis and she states she has a therapist. The patient says she had an an appointment today at 12 but missed it because she was here. PAST PSYCHIATRIC HISTORY: Diagnoses: Depression, anxiety, PTSD Suicide attempts or Self-harm behavior: Denies Prior psychiatric hospitalizations: Yes Substance Abuse history: Denies Previous psychiatric medications tried: yes Outpatient treatment: Yes PAST MEDICAL HISTORY: None reported or document Family Psychiatric History: None reported or documented SOCIAL HISTORY Marital Status: single Living Arrangements: with family Employment Status: Employed Access to guns/weapons: Denies Education: high school grad History of Abuse: Denies Legal History: Denies REVIEW OF SYSTEMS Constitutional: Negative for weight loss ENT: Negative for stridor Respiratory: Negative for cough or hemoptysis All other systems reviewed and are negative MENTAL STATUS EXAMINATION General Appearance and Behavior: Age appropriate, wearing appropriate clothes, cooperative, polite with questioning, good eye contact, pleasant Cooperation: cooperative Psychomotor Behavior: Psychomotor normal Mood: Good Affect and affective range: Congruent with stated mood Thought Process: goal directed Thought Content: None Speech: Normal volume, Regular rate and rhythm Suicidal Ideation: Denies Homicidal Ideation: Denies Hallucination: Denies Delusions: None elicited Impulse Control: Limited Insight and Judgment: Limited Memory: limited Attention:attentive Orientation: Alert and oriented Diagnoses: Hx of Major Depressive Disorder Treatment Plan d/c 1013 Continue home meds PSYCHOTHERAPY: Supportive psychotherapy provided MEDICAL: Per primary team DELIRIUM PRECAUTIONS: Please re-orient patient frequently, keep lights on during the day, and minimize benzodiazepines and opiates as these medications could worsen patient's confusion. TACO MAKER: Per medical team DISPOSITION: Do not Recommend acute psychiatric inpatient treatment. The patient understands that if SI/HI arise she is to seek immediate assistance The improvement lead to further discuss safety plan The patient to follow up with outpatient psychiatrist in 7 to 14 days upon discharge Will sign off. Thank you for the consult. Case staffed with Dr. Polo Medications and Allergies Allergies Allergy/AdvReac Type Severity Reaction Status Date / Time shellfish derived Allergy Swelling Verified 07/12/21 22:09 Home Medications Medication Instructions Recorded Confirmed Last Taken Type Vit No.129/Iron/Folic 1 each PO DAILY #60 tab 07/13/21 10/07/21 10/06/21 Rx [ One Daily Tablet] Active Meds: Active Medications Multivitamins/Iron/Calcium ( Ptg88-Ql Fumarate-Folic Acid Vit Tab) 1 each PO QDAY [facility] Ondansetron HCl (Ondansetron 4 Mg Odt Tab) 4 mg PO Q8H PRN PRN Reason: Nausea And Vomiting Last Admin: 10/07/21 12:49 Dose: 4 mg Potassium Chloride (Potassium Chloride Er 20 Meq Tab) 40 meq PO QDAY NEAL Pyridoxine HCl (Pyridoxine 50 Mg Tab) 100 mg PO QDAY [facility] Last Admin: 10/07/21 13:14 Dose: 100 mg Mental Status Exam - Vital signs Last Vital Signs Temp 97.6 F 10/07/21 07:45 Pulse 89 10/07/21 13:18 Resp 20 10/07/21 13:18 BP 100/66 10/07/21 13:18 Pulse Ox 98 10/07/21 13:18 Results Result Diagrams: 10/06/21 23:38 10/07/21 12:07 Abnormal lab results 10/06/21 10/06/21 10/06/21 Range/Units 23:38 23:38 23:38 WBC 11.3 H (4.5-11.0) K/mm3 Seg Neutrophils % 71.8 H (40.0-70.0) % Seg Neutrophils # 8.1 H (1.8-7.7) K/mm3 Sodium (137-145) mmol/L Potassium 2.9 L* (3.6-5.0) mmol/L Carbon Dioxide 15 L (22-30) mmol/L Creatinine 0.5 L (0.6-1.2) mg/dL Glucose 113 H (65-100) mg/dL HCG, Quant 46451 H (0-4) mIU/mL Urine WBC (Auto) (0.0-6.0) /HPF Salicylates (2.8-20.0) mg/dL Acetaminophen (10.0-30.0) ug/mL 10/06/21 10/06/21 10/07/21 Range/Units 23:38 23:38 12:07 WBC (4.5-11.0) K/mm3 Seg Neutrophils % (40.0-70.0) % Seg Neutrophils # (1.8-7.7) K/mm3 Sodium 135 L (137-145) mmol/L Potassium 3.3 L (3.6-5.0) mmol/L Carbon Dioxide (22-30) mmol/L Creatinine 0.4 L (0.6-1.2) mg/dL Glucose 104 H (65-100) mg/dL HCG, Quant (0-4) mIU/mL Urine WBC (Auto) (0.0-6.0) /HPF Salicylates < 0.3 L (2.8-20.0) mg/dL Acetaminophen 5.0 L (10.0-30.0) ug/mL 10/07/21 Range/Units Unknown WBC (4.5-11.0) K/mm3 Seg Neutrophils % (40.0-70.0) % Seg Neutrophils # (1.8-7.7) K/mm3 Sodium (137-145) mmol/L Potassium (3.6-5.0) mmol/L Carbon Dioxide (22-30) mmol/L Creatinine (0.6-1.2) mg/dL Glucose (65-100) mg/dL HCG, Quant (0-4) mIU/mL Urine WBC (Auto) 8.0 H (0.0-6.0) /HPF Salicylates (2.8-20.0) mg/dL Acetaminophen (10.0-30.0) ug/mL All other labs normal.
[2021-10-08] MEDS ORDERED: PRENATAL VIT27-FE FUMARATE-FOLIC ACID VIT TAB PO SCH (10:00)
[2021-10-08] MEDS ORDERED: POTASSIUM CHLORIDE ER 20 MEQ TAB PO SCH (10:00)
--- NOTE | 2021-10-09 10:00 | Electrocardiograph Report ---
[facility] Test Date: 2021-10-07 Test Time: 12:12:39 Pat Name: EZEKIEL GILLIS Department: Room: Gender: F Gun Examiner: CORAZON : 1995 Requested By: CHEY CONTRERAS Order Number: [id number] Reading MD: Jay Moore Measurements Intervals [place] Rate: 74 P: -31 ME: 123 QRS: 69 QRSD: 66 T: 39 QT: 368 QTc: 408 Interpretive Statements Sinus rhythm No previous ECG available for comparison Electronically Signed On 10-09-2021 10:00:13 EDT by Jay Moore
== END 2021-10-07 13:30 | disposition home or self-care (01) ==
LOC: ED 21:51
DX: O9A.212 Injury, poisoning and certain other consequences of external causes complicating pregnancy, second trimester (principal); T65.892A Toxic effect of other specified substances, intentional self-harm, initial encounter; Z3A.19 19 weeks gestation of pregnancy; R45.851 Suicidal ideations; R45.850 Homicidal ideations; Z79.899 Other long term (current) drug therapy; F41.9 Anxiety disorder, unspecified; Z91.013 Allergy to seafood; Y92.89 Other specified places as the place of occurrence of the external cause; Y93.89 Activity, other specified; Y99.8 Other external cause status
CPT/HCPCS: 36415; 76805; 76816; 80048; 80053; 80307; 80320; 81001; 83550; 83690; 83735; 83880; 84443; 84702; 85025; 85610; 85730; 93005; 99285; J3490; G0480; Q0162